=== PATIENT | female | born 1990 | race Caucasian/White ===

== ENCOUNTER 2017-01-13 21:45 | Inpatient (IN) | payer BC ==
[~2017-01-13] VITALS: Ht 154.9 cm; Wt 40.0 kg
[2017-01-13 22:26] VITALS: BP 111/55; RESP 18
[2017-01-13] MEDS ORDERED: ACETAMINOPHEN 325 MG TAB PO PRN (22:30)
[2017-01-13] MEDS: HYDROmorphONE 0.5 MG/0.5 ML SYG IV PRN (22:59)
[2017-01-13] MEDS: DEXTROSE 5%-0.9% NACL 1,000 ML IV SCH (23:08)
[2017-01-13] MEDS: ONDANSETRON 4 MG INJ IV PRN (23:11)
[2017-01-13 23:26] VITALS: Ht 154.9 cm; Wt 40.0 kg
[2017-01-14] MEDS: ONDANSETRON 4 MG INJ IV PRN ×6 (03:15→22:57)
[2017-01-14] MEDS: HYDROmorphONE 0.5 MG/0.5 ML SYG IV PRN ×6 (03:16→22:57)
[2017-01-14 03:26] VITALS: BP 110/72; RESP 18
[2017-01-14] MEDS: PANTOPRAZOLE 40 MG INJ IV SCH (05:41)
[2017-01-14 06:07] LABS: BASOPHILS % 0.5 % (0.0-2.0); EOSINOPHILS # 0.2 10^3/ul (0.0-0.5); EOSINOPHILS % 2.4 % (0.0-7.0); HEMATOCRIT 33.1 % (37.0-47.0); HEMOGLOBIN 11.1 g/dl (12.0-16.0); LYMPHOCYTES % 38.4 % (15.0-51.0); MEAN CORPUSCULAR HEMOGLOBIN 30.6 pg (29.0-33.0); MEAN CORPUSCULAR HGB CONC 33.5 g/dl (32.0-37.0); MEAN CORPUSCULAR VOLUME 91.2 fl (82.0-101.0); MEAN PLATELET VOLUME 10.3 fl (7.4-10.4); MONOCYTE # 0.6 10^3/ul (0.3-0.9); MONOCYTES % 7.1 % (0.0-11.0); NEUTROPHIL # 4.1 10^3/ul (1.6-7.5); NEUTROPHILS % 51.2 % (39.0-77.0); PLATELET COUNT 168 10^3/UL (140-415); RED BLOOD COUNT 3.63 10^6/ul (4.20-5.40); RED CELL DISTRIBUTION WIDTH 12.6 % (11.5-14.5); WHITE BLOOD COUNT 7.9 10^3/ul (4.8-10.8)
[2017-01-14 06:41] LABS: ALBUMIN 3.2 g/dl (3.3-4.9); ALBUMIN/GLOBULIN RATIO 1.1; BILIRUBIN,INDIRECT 0.5 mg/dl (0-1.1); BILIRUBIN,TOTAL 0.5 mg/dl (0.2-1.3); CALCIUM 8.5 mg/dl (8.4-10.2); CREATININE 0.6 mg/dl (0.44-1.00); POTASSIUM 3.7 mmol/L (3.5-5.1); TOTAL PROTEIN 6.1 g/dl (6.1-8.1)
[2017-01-14 08:00] VITALS: BP 125/79; RESP 18
[2017-01-14] MEDS: DEXTROSE 5%-0.9% NACL 1,000 ML IV SCH ×2 (10:06→23:59)
[2017-01-14 14:00] VITALS: BP 120/77; RESP 20
[2017-01-14 18:28] LABS: HAAIG REFLEX REFLEX FILED
[2017-01-14 18:41] LABS: AMYLASE < 30 U/L (11-123)
--- NOTE | 2017-01-14 19:00 | RADRPT ---
PROCEDURE: XR Abdomen. CLINICAL INDICATION: Kidney stones. Abdominal pain. TECHNIQUE: AP abdomen x-ray. COMPARISON: None. FINDINGS: Contrast material is seen throughout nondilated colon. Air is seen in minimally dilated upper mid ab dominal small bowel loops. Right upper quadrant clips are seen.. Air is seen to the level of the re ctum. No gross bowel obstruction. The left kidney is obscured by colonic contrast. No gross right re nal stones. Small calcifications in the midline pelvis may represent phleboliths. No bony abnormalit y is seen. IMPRESSION: Retained contrast in the colon. Minimally dilated mid abdominal small bowel loops. RPTAT: HLBE Physician Maya Date Time Electronically viewed and signed by Physician Maya on 01/14/2017 19:00 WILMAN/
--- NOTE | 2017-01-14 19:51 | QN ---
Documentation Comment [id number] LD PIZANO MD Jan 14, 2017 19:51
[2017-01-14 20:00] VITALS: BP 121/68; RESP 20
[2017-01-14] MEDS ORDERED: LORAZEPAM 2 MG INJ IV SCH (20:00)
--- NOTE | 2017-01-14 20:40 | HP ---
DATE OF ADMISSION: 01/13/2017 HISTORY OF PRESENT ILLNESS: Elisha Cadena is a 26-year-old female, who presented to [facility] with nausea, vomiting, poor p.o. intake, has history of cholecystectomy. The patient was tr ansferred here for further management. The patient is also going to be seen by Dr. Mayorga in [facility]. PAST MEDICAL HISTORY: Positive for cholecystectomy. No diabetes or hypertension. ALLERGY HISTORY: NEGATIVE. FAMILY HISTORY: Negative. SOCIAL HISTORY: Social marijuana use. MEDICATIONS AT HOME: None. REVIEW OF SYSTEMS: HEENT: Unremarkable. RESPIRATORY: Unremarkable. CARDIOVASCULAR: Unremarkable. ABDOMEN: Nausea, vomiting, abdominal pain. EXTREMITIES: Unremarkable. CENTRAL NERVOUS SYSTEM: Unremarkable. PHYSICAL EXAMINATION: GENERAL: The patient is awake and alert. VITAL SIGNS: Pulse 84, blood pressure 125/79. HEENT: Head is atraumatic, normocephalic. Pupils equal, reactive to light. NECK: Supple. There is no JVD. LUNGS: Clear. CARDIOVASCULAR: S1, S2 normal. ABDOMEN: Soft. Mild tenderness in epigastric area. EXTREMITIES: There is no cyanosis, clubbing or edema. CENTRAL NERVOUS SYSTEM: The patient is awake, alert, no focal deficit. LABORATORY DATA: Sodium 140, potassium 3.7, hematocrit 33.1. IMPRESSION: 1. The patient has abdominal pain. 2. Hyperemesis. 3. The patient has a rule out gastritis. 4. Anemia. 5. Abnormal LFT. 6. History of marijuana use socially. PLAN: To obtain GI consultation, IV fluid, PPI, antinausea medications, SCD to the legs. Other rec ommendations per Dr. Mayorga. Dictated By: LD PIZANO MD BS/NTS Conf#: [id number] DID#: [id number]
--- NOTE | 2017-01-14 20:45 | CONS ---
DATE OF ADMISSION: 01/13/2017 DATE OF CONSULTATION: TYPE OF CONSULTATION: Gastroenterology. Dear Dr. Pizano: Thank you for asking me to see Ms. Cadena in GI consultation. HISTORY OF PRESENT ILLNESS: The patient, as you know, is a 26-year-old female who has been experiencing excruciating right upper quadrant epigastric pain since Friday. On Friday, she al so had a few episodes of diarrhea, but since after that, Friday, Friday and Friday, she did not hav e any diarrhea. She has been chronically nauseated. She did vomit 1 time on Friday. No history of fever. No jaundice. No vomiting blood. No history of passing blood from the rectum. She says she had a cholecystectomy in 2010. Because of the persistent abdominal pain, she went to [facility]. From there, she was referred to this hospital because of insurance reasons. MEDICATIONS PRIOR TO THE ADMISSION: Include none. MEDICATIONS IN THE HOSPITAL: She is on: 1. Protonix. 2. Zofran. 3. Dilaudid. SOCIAL HISTORY: She does not smoke or drink. She does have 1 child. She works as a private secretary in a medical office. PAST MEDICAL HISTORY: She had a cholecystectomy. She also says she passed a kidney stone. REVIEW OF SYSTEMS: No other medical problems reported. PHYSICAL EXAMINATION: GENERAL: The patient is a 26-year-old female who at this time is alert. VITAL SIGNS: Temperature 98.6, pulse is 84, blood pressure is 120/77. CARDIOVASCULAR: Normal heart sounds. RESPIRATORY: Normal breath sounds. ABDOMEN: Showed a soft abdomen with no significant tenderness. LABORATORY WORKUP: The WBC is 7900, MCV 91.2, neutrophils 51, lymphocytes 38. BUN , creatinin e 0.6. Bilirubin 0.5, AST 63 which is high, ALT is 124 which is high, alk phos is 56, normal. Pota ssium 3.7. IMAGING STUDIES: Not available now. She had a test in [facility]. It was negative. CLINICAL IMPRESSION: The patient presenting with history of right upper quadrant pain going on for 4 days, associated with minimal diarrhea and 1 episode of vomiting. Physical exam is negative. WBC count is normal. Borderline elevation of the liver functions. It is quite possible that she may b e passing a common bile duct stone. She could still have a choledocholithiasis, although peptic ulc er disease, gastritis must be ruled out. She says she passed a kidney stone. That needs to be cons idered. PLAN: Will order MRCP and continue Protonix. We may have to do an EGD or ERCP depending upon the [employer] findings. Recommend a hepatitis panel, amylase and lipase. Dr. Pizano, once again, thank you for this consultation. Dictated By: CHAPINCITO TURK MD NC/NTS Conf#: [id number] DID#: [id number] CC: LD PIZANO MD;*EndCC*
[2017-01-14 21:26] LABS: HEPATITIS B CORE ANTIBODY NEGATIVE (NEGATIVE)
--- NOTE | 2017-01-14 22:32 | RADRPT ---
PROCEDURE: MRI abdomen / MRCP CLINICAL INDICATION: Abdominal pain. History of cholecystectomy 2010. Clinical concern for choledo cholithiasis TECHNIQUE: MRI of the abdomen is performed without contrast utilizing axial T2 and T2 fat suppress ion sequences as well as in and out of phase imaging. The MRCP is performed and the MIP series sub mitted for review. COMPARISON: Abdominal x-ray 03/17/2016 FINDINGS: Visualized lower thorax: Trace dependent right pleural effusion is present. There is no evidence of consolidation or left pleural effusion. Liver: Normal in size, contour and signal intensity with no evidence for masses or ductal dilatatio n. Gallbladder: Surgically absent compatible with the provided history. There is no evidence of collec tion or mass lesion within the gallbladder fossa Common bile duct: There is no filling defect to suggest choledocholithiasis. The caliber of the du ct is normal estimated at 3 mm. The MRCP shows no evidence for intrahepatic or extrahepatic ductal dilatation, the ductal system is smoothly aligned with no evidence for filling defect. Pancreas: There is no finding to suggest pancreatitis, mass or ductal dilatation. Spleen: Normal in size with no masses evident. Adrenal glands: Unremarkable bilaterally. Kidneys: Normal in size with no evidence for masses or hydronephrosis. No perinephric inflammation is present. Stomach, visualized small bowel and visualized large intestine: No evidence of dilatation or wall th ickening. There is no evidence of ascites. Abdominal aorta: Normal in caliber estimated at 1.1 cm. Inferior vena cava: Normal. Vertebral bodies and osseous structures: Unremarkable. Musculature and soft tissues: Normal. RPTAT:HJJR IMPRESSION: 1. The common bile duct and intrahepatic ducts are normal in caliber and there is no choledocholith iasis. 2. Changes compatible with the provided history of prior cholecystectomy. 3. Trace dependent right pleural effusion. Physician Angy Date Time Electronically viewed and signed by Physician Angy on 01/14/2017 22:32 /
[2017-01-15] VITALS (8 sets, daily range): BP systolic 105–142; BP diastolic 51–72; PULSE 60–68; RESP 10–20
[2017-01-15] MEDS: HYDROmorphONE 0.5 MG/0.5 ML SYG IV PRN ×6 (02:48→23:06)
[2017-01-15] MEDS: ONDANSETRON 4 MG INJ IV PRN ×6 (02:48→23:06)
[2017-01-15] MEDS: PANTOPRAZOLE 40 MG INJ IV SCH (05:28)
[2017-01-15 05:45] LABS: BASOPHILS % 0.7 % (0.0-2.0); EOSINOPHILS # 0.3 10^3/ul (0.0-0.5); EOSINOPHILS % 5.4 % (0.0-7.0); HEMATOCRIT 35.5 % (37.0-47.0); HEMOGLOBIN 12.2 g/dl (12.0-16.0); LYMPHOCYTES # 2.4 10^3/ul (0.8-2.9); LYMPHOCYTES % 43.2 % (15.0-51.0); MEAN CORPUSCULAR HEMOGLOBIN 31.1 pg (29.0-33.0); MEAN CORPUSCULAR HGB CONC 34.4 g/dl (32.0-37.0); MEAN CORPUSCULAR VOLUME 90.6 fl (82.0-101.0); MONOCYTE # 0.5 10^3/ul (0.3-0.9); MONOCYTES % 8.1 % (0.0-11.0); NEUTROPHIL # 2.3 10^3/ul (1.6-7.5); NEUTROPHILS % 42.2 % (39.0-77.0); PLATELET COUNT 182 10^3/UL (140-415); RED BLOOD COUNT 3.92 10^6/ul (4.20-5.40); RED CELL DISTRIBUTION WIDTH 12.6 % (11.5-14.5); WHITE BLOOD COUNT 5.6 10^3/ul (4.8-10.8)
[2017-01-15 06:14] LABS: ALBUMIN 3.4 g/dl (3.3-4.9); ALBUMIN/GLOBULIN RATIO 1.17; BILIRUBIN,INDIRECT 0.5 mg/dl (0-1.1); BILIRUBIN,TOTAL 0.5 mg/dl (0.2-1.3); CALCIUM 8.7 mg/dl (8.4-10.2); CREATININE 0.59 mg/dl (0.44-1.00); POTASSIUM 3.3 mmol/L (3.5-5.1); TOTAL PROTEIN 6.3 g/dl (6.1-8.1)
[2017-01-15] MEDS ORDERED: PROPOFOL 20 ML ONE (08:57)
[2017-01-15] MEDS ORDERED: GLYCOPYRROLATE 0.4 MG INJ ONE (08:57)
[2017-01-15] MEDS ORDERED: LIDOCAINE 2% (SDV) 5 ML INJ ONE (08:57)
--- NOTE | 2017-01-15 10:19 | OPPN ---
Date/Time of Note Date/Time of Note DATE: 01/15/17 TIME: 10:16 Proc Note GI Procedure Date 01/15/17 Indication: diagnostic Pre-procedure Diagnosis abd pain and vomitting r/o pud Post-procedure Diagnosis diffuse gastritis mild Procedure Performed: Endoscopy Surgeon see signature line Bridge Worker none Anesthesia Type: MAC Anesthesiologist: VANDANA ROGERS MD Tourniquet Time none EBL none Transfusion required none Biopsy 1: gastric and duod Grafts/Implants none Tubes/Drains none Complication(s) none Procedure Description under mac egd performed diffuse mild gastritis noted see dict CHAPINCITO TURK MD Jan 15, 2017 10:19
[2017-01-15] MEDS ORDERED: BARIUM SULF 2% 450 ML BTL (BERRY SMOOTHIE) PO ONE (10:30)
[2017-01-15] MEDS ORDERED: FENTAnyl 50 MCG/ML VIAL ONE (10:50)
[2017-01-15] MEDS ORDERED: MIDAZOLAM 1 MG/ML 2 ML INJ ONE (10:50)
[2017-01-15] MEDS ORDERED: POTASSIUM CHLORIDE 30 MEQ in DEXTROSE 5% 250 ML IVPB ONE (12:00)
[2017-01-15] MEDS ORDERED: HYDROmorphONE 1 MG/ML SYG IV STA (12:01)
--- NOTE | 2017-01-15 13:13 | GILP ---
DATE OF PROCEDURE: 01/15/2017 PROCEDURE: Esophagogastroduodenoscopy. PREOPERATIVE DIAGNOSIS: Patient presenting with history of abdominal pain with vomiting, occasional diarrhea. Rule out peptic ulcer disease. POSTOPERATIVE DIAGNOSES: 1. Mild diffuse gastritis. 2. Biopsies were done from the duodenum to rule out celiac sprue to rule out Giardia. 3. Esophagus normal. DESCRIPTION OF PROCEDURE: After informed written consent was obtained, the patient was asked to lie on the left lateral side. Intravenous anesthesia was given by anesthesiologist, Dr. Brandt. When the patient became somnolent, the Olympus video upper endoscope was introduced into the oropharynx, then into the esophagus. Esophagus showed evidence of normal mucosal pattern with no ulcers, no geeta plasm. Scope at this time was advanced into the stomach. Entire stomach showed evidence of a diffu se erythema, petechial type of red spots were noted in the fundus of the stomach. The duodenum was examined. The duodenum showed a normal mucosal pattern; however, there seems to be a decreased fold s in certain parts of the duodenum. Biopsy was obtained to rule out celiac sprue to rule out Giardi a. Endoscope at this time was withdrawn to the stomach. Biopsy of the distal antrum, the lesser cu rvature, and the fundus were obtained to rule out H. pylori infection. Scope at this time was withd rawn and no additional abnormalities detected and the procedure was terminated. PLAN: Recommend proton pump inhibitor therapy. Dictated By: CHAPINCITO LANCASTER/NTS Conf#: [id number] DID#: [id number] CC: LD PIZANO MD;*EndCC*
[2017-01-15] MEDS: DEXTROSE 5%-0.9% NACL 1,000 ML IV SCH (14:05)
[2017-01-15] MEDS ORDERED: SOD CHLORIDE 0.9% 100 ML ONE (16:37)
[2017-01-15] MEDS ORDERED: IOHEXOL 300MG/ML 150 ML BTL ONE (16:37)
--- NOTE | 2017-01-15 17:31 | RADRPT ---
PROCEDURE: CT Abdomen and pelvis with and without contrast. CLINICAL INDICATION: Abdominal pain, nausea vomiting TECHNIQUE: CT scan of the abdomen and pelvis with contrast was performed on a multidetector high-r esolution CT scan. The patient was scanned prior to and following the uncomplicated intravenous adm inistration 100 cc of Isovue 370. Oral contrast was also administered. Coronal and sagittal reforma tted images were obtained from the axial source images. Images were reviewed on a high-resolution [employer] workstation. The total exam CTDI equals 7.8 mGy and the total exam DLP equals 399.19 mGy-cm. One or more of the following dose reduction techniques were used: Automated exposure control. Adjustment of the mA and/or kV according to patient's size. Use of iterative reconstruction technique. DICOM images are available. COMPARISON: None. FINDINGS: The lung bases are clear. The liver is normal in size and contour without evidence of intrahepatic biliary dilatation. The spleen, pancreas, and adrenal glands are unremarkable. The gallbladder is s urgically absent. The kidneys are bilaterally symmetric without evidence of hydronephrosis. The abdominal aorta is in tact without evidence of aneurysm. No significant retroperitoneal adenopathy is identified. The stomach is grossly unremarkable. There is no evidence of small bowel obstruction, appendicitis or diverticulitis. No free fluid or free air is identified. Evaluation of the osseous structures r eveals no acute change. IMPRESSION: 1. Status post cholecystectomy. 2. Otherwise, no significant abnormalities are identified. There is no evidence of small bowel obst ruction, appendicitis, obstructive uropathy or diverticulitis. RPTAT:AAJJ Physician Asha Date Time Electronically viewed and signed by Physician Asha on 01/15/2017 17:30 /
--- NOTE | 2017-01-15 17:32 | PN ---
Date/Time of Note Date/Time of Note DATE: 01/15/17 TIME: 17:31 Assessment/Plan VTE Prophylaxis VTE Prophylaxis Intervention: other Lines/Catheters IV Catheter Type (from Nrs): Peripheral IV Assessment/Plan Chief Complaint/Hosp Course IMPRESSION: 1. The patient has abdominal pain. 2. Hyperemesis. 3. The patient has a rule out gastritis. 4. Anemia. 5. Abnormal LFT. 6. History of marijuana use socially. 7 hypokalemia plan per gi Problems: Subjective 24 Hr Interval Summary Gastrointestinal: no complaints Genitourinary: no complaints Exam/Review of Systems Vital Signs Vitals Vital Signs Date Time Temp Pulse Resp B/P Pulse Ox O2 Delivery O2 Flow Rate FiO2 01/15/17 14:53 98.6 65 18 105/53 96 Room Air Intake and Output 01/14/17 01/14/17 01/15/17 15:00 23:00 07:00 Intake Total 375 ml 1245 ml 850 ml Balance 375 ml 1245 ml 850 ml Exam Respiratory: clear to auscultation Cardiovascular: regular rate and rhythm Gastrointestinal: soft Musculoskeletal: nl extremities to inspection Extremities: normal pulses Results Result Diagram: 01/15/17 0521 01/15/17 0520 Results 24 hrs Laboratory Tests Test 01/15/17 05:20 01/15/17 05:21 Sodium Level 139 Potassium Level 3.3 L Chloride Level 104 Carbon Dioxide Level 29 Anion Gap 9 Blood Urea Nitrogen 3 L Creatinine 0.59 Glucose Level 202 # Calcium Level 8.7 Total Bilirubin 0.5 Direct Bilirubin 0.00 Indirect Bilirubin 0.5 Aspartate Amino Transf (AST/SGOT) 68 H Alanine Aminotransferase (ALT/SGPT) 128 H Alkaline Phosphatase 57 Total Protein 6.3 Albumin 3.4 Globulin 2.90 Albumin/Globulin Ratio 1.17 White Blood Count 5.6 # Red Blood Count 3.92 L Hemoglobin 12.2 Hematocrit 35.5 L Mean Corpuscular Volume 90.6 Mean Corpuscular Hemoglobin 31.1 Mean Corpuscular Hemoglobin Concent 34.4 Red Cell Distribution Width 12.6 Platelet Count 182 Mean Platelet Volume 10.0 Neutrophils % 42.2 Lymphocytes % 43.2 Monocytes % 8.1 Eosinophils % 5.4 Basophils % 0.7 Nucleated Red Blood Cells % 0.0 Neutrophils # 2.3 Lymphocytes # 2.4 Monocytes # 0.5 Eosinophils # 0.3 Basophils # 0.0 Nucleated Red Blood Cells # 0.0 Medications Medications Current Medications Dextrose/Sodium Chloride (D5-NS) 1,000 ml @ 75 mls/hr [id number] IV Last administered on 01/15/17 14:05; Admin Dose 75 MLS/HR; Start 01/13/17 at 22:30 Ondansetron HCl (Zofran Inj) 4 mg Q4H PRN IV NAUSEA AND/OR VOMITING Last administered on 01/15/17 14:53; Admin Dose 4 MG; Start 01/13/17 at 22:30 Pantoprazole (Protonix Iv) 40 mg DAILY@06 IV Last administered on 01/15/17 05: 28; Admin Dose 40 MG; Start 01/14/17 at 06:00 Acetaminophen (Tylenol Tab) 650 mg Q6H PRN PO PAIN AND OR ELEVATED TEMP; Start 01/13/17 at 22:30 Hydromorphone HCl (Dilaudid) 0.5 mg Q3H PRN IV PAIN Last administered on 14:05; Admin Dose 0.5 MG; Start 01/15/17 at 12:30 LD PIZANO MD Jan 15, 2017 17:32
[2017-01-16] MEDS ORDERED: LORAZEPAM 2 MG INJ IV ONE
[2017-01-16] MEDS ORDERED: SUCRALFATE 1 GM TAB PO ONE (00:30)
[2017-01-16 01:10] LABS: INR 1.04; PARTIAL THROMBOPLASTIN TIME 31.5 Sec (25.0-35.0); PROTIME 13.7 Sec (11.9-14.9); PT RATIO 1.1
[2017-01-16] MEDS: PANTOPRAZOLE IV 80 MG in SOD CHLORIDE 0.9% 100 ML IV SCH ×3 (01:52→22:03)
[2017-01-16 02:00] VITALS: BP 103/58; RESP 20
[2017-01-16] MEDS: ONDANSETRON 4 MG INJ IV PRN ×4 (03:08→20:18)
[2017-01-16] MEDS: HYDROmorphONE 0.5 MG/0.5 ML SYG IV PRN ×5 (03:08→18:57)
[2017-01-16] MEDS: DEXTROSE 5%-0.9% NACL 1,000 ML IV SCH ×3 (03:50→20:18)
[2017-01-16 06:23] LABS: BASOPHIL # 0.1 10^3/ul (0.0-0.1); BASOPHILS % 0.7 % (0.0-2.0); EOSINOPHILS # 0.5 10^3/ul (0.0-0.5); HEMATOCRIT 38.8 % (37.0-47.0); HEMOGLOBIN 13.3 g/dl (12.0-16.0); LYMPHOCYTES # 3.2 10^3/ul (0.8-2.9); MEAN CORPUSCULAR HEMOGLOBIN 30.7 pg (29.0-33.0); MEAN CORPUSCULAR HGB CONC 34.3 g/dl (32.0-37.0); MEAN CORPUSCULAR VOLUME 89.6 fl (82.0-101.0); MEAN PLATELET VOLUME 10.1 fl (7.4-10.4); MONOCYTE # 0.5 10^3/ul (0.3-0.9); MONOCYTES % 7.7 % (0.0-11.0); NEUTROPHIL # 2.8 10^3/ul (1.6-7.5); NEUTROPHILS % 39.5 % (39.0-77.0); PLATELET COUNT 208 10^3/UL (140-415); RED BLOOD COUNT 4.33 10^6/ul (4.20-5.40); RED CELL DISTRIBUTION WIDTH 12.3 % (11.5-14.5)
[2017-01-16 06:53] LABS: ALANINE AMINOTRANSFERASE 118 IU/L (13-69); ALBUMIN 3.6 g/dl (3.3-4.9); ALBUMIN/GLOBULIN RATIO 1.24; ALKALINE PHOSPHATASE 60 IU/L (42-121); ANION GAP 9 (8-16); ASPARTATE AMINO TRANSFERASE 43 IU/L (15-46); BILIRUBIN,INDIRECT 0.6 mg/dl (0-1.1); BILIRUBIN,TOTAL 0.6 mg/dl (0.2-1.3); CALCIUM 8.9 mg/dl (8.4-10.2); CARBON DIOXIDE 29 mmol/L (21-31); CHLORIDE 104 mmol/L (97-110); CREATININE 0.59 mg/dl (0.44-1.00); GLUCOSE 102 mg/dl (70-220); POTASSIUM 3.5 mmol/L (3.5-5.1); SODIUM 138 mmol/L (135-144); TOTAL PROTEIN 6.5 g/dl (6.1-8.1)
[2017-01-16 07:19] LABS: BLOOD UREA NITROGEN < 2 mg/dl (7-20)
[2017-01-16 08:00] VITALS: BP 108/70; RESP 20
--- NOTE | 2017-01-16 10:38 | PDOCDIS ---
Discharge Instructions CONDITION Patient Condition: Stable ACTIVITY: Activity Restrictions: Slowly Increase Activity FOLLOW UP/APPOINTMENTS Follow-up Plan f/u own pcp [address] beasley 1 wk LD PIZANO MD Jan 16, 2017 10:38
[2017-01-16] MEDS ORDERED: PANT40TA3 PO (10:39)
[2017-01-16] MEDS ORDERED: ONDA-43 PO (10:39)
[2017-01-16 11:42] LABS: BARBITURATES Negative (NEGATIVE); BENZODIAZEPINES Positive (NEGATIVE); CANNABINOIDS Positive (NEGATIVE); COCAINE Negative (NEGATIVE); OPIATES Positive (NEGATIVE)
[2017-01-16] MEDS ORDERED: HYDROmorphONE 0.5 MG/0.5 ML SYG IV STA (11:58)
[2017-01-16 12:35] LABS: HEMATOCRIT 36.8 % (37.0-47.0); HEMOGLOBIN 12.7 g/dl (12.0-16.0)
[2017-01-16 14:00] VITALS: BP 106/62; RESP 20
--- NOTE | 2017-01-16 15:40 | CONS ---
DATE OF ADMISSION: 01/13/2017 DATE OF CONSULTATION: HISTORY OF PRESENT ILLNESS: At this time, patient is being followed from a GI standpoint because of abdominal pain. The patient says she is having periodic abdominal pain unresponsive to routine diu retic therapy. No nausea, no vomiting, no GI bleeding, no fever. PHYSICAL EXAMINATION: VITAL SIGNS: Temperature is 97.8. The pulse is 75, respirations 20, blood pressure 106/62. ABDOMEN: Unremarkable. LABORATORY WORKUP: WBC count is 7000, hemoglobin 12.7, potassium 3.5, bilirubin 0.6. The AST is 43 , ALT is 118, amylase less than 30, lipase is 32. Repeat CAT scan of the abdomen showed unremarkabl e findings. CLINICAL IMPRESSION: Persistent Abdominal pain, etiology unknown. Liver functions are elevated but I do not believe she has got a choledocholithiasis because magnetic resonance cholangiopancreatogra phy does not show choledocholithiasis. PLAN: At this time, patient is waiting to be seen by his surgeon for evaluation. Dictated By: CHAPINCITO LANCASTER/SUSANA Conf#: [id number] DID#: [id number]
[2017-01-16] MEDS ORDERED: LIDOCAINE/MYLANTA 40 ML BTL PO ONE (17:30)
--- NOTE | 2017-01-16 17:59 | PN ---
Date/Time of Note Date/Time of Note DATE: 01/16/17 TIME: 17:58 Assessment/Plan VTE Prophylaxis VTE Prophylaxis Intervention: other Lines/Catheters IV Catheter Type (from Nrs): Peripheral IV Assessment/Plan Chief Complaint/Hosp Course IMPRESSION: 1. The patient has abdominal pain. 2. Hyperemesis.BETTER 3. The patient has a rule out gastritis. 4. Anemia. 5. Abnormal LFT.BETTER 6. History of marijuana use socially. PLAN SURG CONSULT Problems: Subjective 24 Hr Interval Summary Gastrointestinal: pain (+) Exam/Review of Systems Vital Signs Vitals Vital Signs Date Time Temp Pulse Resp B/P Pulse Ox O2 Delivery O2 Flow Rate FiO2 01/16/17 14:00 97.8 75 20 106/62 96 01/15/17 14:53 Room Air Intake and Output 01/15/17 01/15/17 01/16/17 14:59 22:59 06:59 Intake Total 525 ml 265 ml 1440 ml Balance 525 ml 265 ml 1440 ml Exam Respiratory: clear to auscultation Cardiovascular: regular rate and rhythm Gastrointestinal: soft Musculoskeletal: nl extremities to inspection Extremities: normal pulses Results Result Diagram: 01/16/17 1215 01/16/17 0534 Results 24 hrs Laboratory Tests Test 01/16/17 00:31 01/16/17 05:00 01/16/17 05:34 01/16/17 12:15 Prothrombin Time 13.7 Prothrombin Time Ratio 1.1 INR International Normalized Ratio 1.04 Activated Partial Thromboplast Time 31.5 Urine Opiates Screen Positive Urine Barbiturates Negative Urine Amphetamines Screen Negative Urine Benzodiazepines Screen Positive Urine Cocaine Screen Negative Urine Cannabinoids Positive White Blood Count 7.0 # Red Blood Count 4.33 Hemoglobin 13.3 12.7 Hematocrit 38.8 36.8 L Mean Corpuscular Volume 89.6 Mean Corpuscular Hemoglobin 30.7 Mean Corpuscular Hemoglobin Concent 34.3 Red Cell Distribution Width 12.3 Platelet Count 208 Mean Platelet Volume 10.1 Neutrophils % 39.5 Lymphocytes % 45.0 Monocytes % 7.7 Eosinophils % 7.0 Basophils % 0.7 Nucleated Red Blood Cells % 0.0 Neutrophils # 2.8 Lymphocytes # 3.2 H Monocytes # 0.5 Eosinophils # 0.5 Basophils # 0.1 Nucleated Red Blood Cells # 0.0 Sodium Level 138 Potassium Level 3.5 Chloride Level 104 Carbon Dioxide Level 29 Anion Gap 9 Blood Urea Nitrogen < 2 L Creatinine 0.59 Glucose Level 102 # Calcium Level 8.9 Total Bilirubin 0.6 Direct Bilirubin 0.00 Indirect Bilirubin 0.6 Aspartate Amino Transf (AST/SGOT) 43 Alanine Aminotransferase (ALT/SGPT) 118 H Alkaline Phosphatase 60 Total Protein 6.5 Albumin 3.6 Globulin 2.90 Albumin/Globulin Ratio 1.24 Medications Medications Current Medications Dextrose/Sodium Chloride (D5-NS) 1,000 ml @ 75 mls/hr [id number] IV Last administered on 01/16/17 05:23; Admin Dose 75 MLS/HR; Start 01/13/17 at 22:30 Ondansetron HCl (Zofran Inj) 4 mg Q4H PRN IV NAUSEA AND/OR VOMITING Last administered on 01/16/17 16:03; Admin Dose 4 MG; Start 01/13/17 at 22:30 Acetaminophen (Tylenol Tab) 650 mg Q6H PRN PO PAIN AND OR ELEVATED TEMP; Start 01/13/17 at 22:30 Hydromorphone HCl 0.5 mg 0.5 mg Q3H PRN IV PAIN Last administered on 01/16/17 16:03; Admin Dose 0.5 MG; Start 01/15/17 at 12:30 Pantoprazole/ Sodium Chloride (Protonix Iv/NS) 100 ml @ 10 mls/hr Q10H IV Last administered on 01/16/17 11:06; Admin Dose 10 MLS/HR; Start 01/16/17 at 00 :30 LD PIZANO MD Jan 16, 2017 17:58
[2017-01-16 20:00] VITALS: BP 97/47; RESP 20
[2017-01-16] MEDS ORDERED: HYDROmorphONE 1 MG/ML SYG IV STA (20:27)
--- NOTE | 2017-01-16 20:34 | CONS ---
Date/Time of Note Date/Time of Note DATE: 01/16/17 TIME: 20:34 Assessment/Plan Assessment/Plan Chief Complaint/Hosp Course 1. Abdominal pain: CT unremarkable, mri: trace pl effusion -No surgical intervention indicated -pain management -further workup per medical/gi team 2. Gastritis per EGD -ppi -lifestyle modification 3. Transaminitis: with negative hep panel: improving -trend with eventual followup outpatient 4. Toxicology + for benzo's, opiates, cannabinoids: Thank you. Patient seen and examined in collaboration with Dr. Lul Gilbert. Problems: Consultation Date/Type/Reason Admit Date/Time Jan 13, 2017 at 21:45 Date of Consultation: Jan 17, 2017 Type of Consultation: surgical Reason for Consultation abdominal pain Referring Provider: LD PIZANO MD Hx of Present Illness Elisha Cadena is a 26-year-old woman who has been experiencing mid epigastric pain since Friday. She does not recount any precipitating factors. No aggravating or alleviating factors. Associated symptoms include 1 time diarrhea, as well as nausea with vomiting 1 time on Friday. She also reports melena. Pain is described as strong, intermittent, "like someone is digging in with a fist". She reports this pain is unlike pain she has before. No history of fever, skin changes, hematemesis, chest pain, shortness of breath , palpitations, dizziness. General surgery was asked to evaluate. Constitutional: No febrile Eyes: No visual change ENT: No congestion Respiratory: No cough, No shortness of breath Cardiovascular: No chest pain, No lightheadedness, No palpitations Gastrointestinal: pain (as above) Genitourinary: No discharge Musculoskeletal: back pain Skin: No bruising, No rash Neurologic: No focal-weakness, No headache Psychological: nl mood/affect Past Surgical History Cholecystectomy Family History Significant Family History: no pertinent family hx Social History Smoking Status: Never smoker Exam/Review of Systems Vital Signs Vitals Vital Signs Date Time Temp Pulse Resp B/P Pulse Ox O2 Delivery O2 Flow Rate FiO2 01/16/17 14:00 97.8 75 20 106/62 96 01/15/17 14:53 Room Air Intake and Output 01/15/17 01/15/17 01/16/17 15:00 23:00 07:00 Intake Total 525 ml 265 ml 1440 ml Balance 525 ml 265 ml 1440 ml Exam Constitutional: alert, oriented Psych: anxiety Head: atraumatic, normocephalic Eyes: nl lids, nl sclera ENMT: mucosa pink and moist, nl nasal mucosa & septum Neck: non-tender, supple Respiratory: clear to auscultation, normal air movement Cardiovascular: regular rate and rhythm Gastrointestinal: bowel sounds, tender (midepigastric), No distended Musculoskeletal: nl extremities to inspection Extremities: normal pulses Neurological: nl mental status, nl speech, nl strength Skin: No rash or lesions Results Result Diagram: 01/16/17 1215 01/16/17 0534 Results 24 hrs Laboratory Tests Test 01/16/17 00:31 01/16/17 05:00 01/16/17 05:34 01/16/17 12:15 Prothrombin Time 13.7 Prothrombin Time Ratio 1.1 INR International Normalized Ratio 1.04 Activated Partial Thromboplast Time 31.5 Urine Opiates Screen Positive Urine Barbiturates Negative Urine Amphetamines Screen Negative Urine Benzodiazepines Screen Positive Urine Cocaine Screen Negative Urine Cannabinoids Positive White Blood Count 7.0 # Red Blood Count 4.33 Hemoglobin 13.3 12.7 Hematocrit 38.8 36.8 L Mean Corpuscular Volume 89.6 Mean Corpuscular Hemoglobin 30.7 Mean Corpuscular Hemoglobin Concent 34.3 Red Cell Distribution Width 12.3 Platelet Count 208 Mean Platelet Volume 10.1 Neutrophils % 39.5 Lymphocytes % 45.0 Monocytes % 7.7 Eosinophils % 7.0 Basophils % 0.7 Nucleated Red Blood Cells % 0.0 Neutrophils # 2.8 Lymphocytes # 3.2 H Monocytes # 0.5 Eosinophils # 0.5 Basophils # 0.1 Nucleated Red Blood Cells # 0.0 Sodium Level 138 Potassium Level 3.5 Chloride Level 104 Carbon Dioxide Level 29 Anion Gap 9 Blood Urea Nitrogen < 2 L Creatinine 0.59 Glucose Level 102 # Calcium Level 8.9 Total Bilirubin 0.6 Direct Bilirubin 0.00 Indirect Bilirubin 0.6 Aspartate Amino Transf (AST/SGOT) 43 Alanine Aminotransferase (ALT/SGPT) 118 H Alkaline Phosphatase 60 Total Protein 6.5 Albumin 3.6 Globulin 2.90 Albumin/Globulin Ratio 1.24 Medications Medications Current Medications Dextrose/Sodium Chloride (D5-NS) 1,000 ml @ 75 mls/hr [id number] IV Last administered on 01/16/17t 20:18; Admin Dose 75 MLS/HR; Start 01/13/17 at 22:30 Ondansetron HCl (Zofran Inj) 4 mg Q4H PRN IV NAUSEA AND/OR VOMITING Last administered on 01/16/17 20:18; Admin Dose 4 MG; Start 01/13/17 at 22:30 Acetaminophen (Tylenol Tab) 650 mg Q6H PRN PO PAIN AND OR ELEVATED TEMP; Start 01/13/17 at 22:30 Hydromorphone HCl 0.5 mg 0.5 mg Q3H PRN IV PAIN Last administered on 01/16/17 18:57; Admin Dose 0.5 MG; Start 01/15/17 at 12:30 Pantoprazole/ Sodium Chloride (Protonix Iv/NS) 100 ml @ 10 mls/hr Q10H IV Last administered on 01/16/17 11:06; Admin Dose 10 MLS/HR; Start 01/16/17 at 00 :30 JAVED MATTA NP Jan 16, 2017 20:34
[2017-01-17] MEDS: ONDANSETRON 4 MG INJ IV PRN ×3 (00:25→08:32)
[2017-01-17] MEDS: HYDROmorphONE 0.5 MG/0.5 ML SYG IV PRN ×3 (00:25→08:32)
[2017-01-17 02:00] VITALS: BP 102/53; RESP 19
[2017-01-17] MEDS: PANTOPRAZOLE IV 80 MG in SOD CHLORIDE 0.9% 100 ML IV SCH ×2 (06:30→08:32)
[2017-01-17 06:54] LABS: ALANINE AMINOTRANSFERASE 95 IU/L (13-69); ALBUMIN 3.4 g/dl (3.3-4.9); ALBUMIN/GLOBULIN RATIO 1.21; ALKALINE PHOSPHATASE 52 IU/L (42-121); ANION GAP 9 (8-16); ASPARTATE AMINO TRANSFERASE 31 IU/L (15-46); BILIRUBIN,INDIRECT 0.5 mg/dl (0-1.1); BILIRUBIN,TOTAL 0.5 mg/dl (0.2-1.3); CARBON DIOXIDE 29 mmol/L (21-31); CHLORIDE 106 mmol/L (97-110); CREATININE 0.59 mg/dl (0.44-1.00); GLUCOSE 93 mg/dl (70-220); POTASSIUM 3.4 mmol/L (3.5-5.1); SODIUM 141 mmol/L (135-144); TOTAL PROTEIN 6.2 g/dl (6.1-8.1)
--- NOTE | 2017-01-17 06:54 | RADRPT ---
PROCEDURE: XR Abdomen. CLINICAL INDICATION: Abdominal pain TECHNIQUE: Upright and supine abdominal x-rays were obtained. COMPARISON: DR ABDOMEN 01/14/[address] abdomen and pelvis of 01/15/2017 FINDINGS: There is appearance of an air-fluid level in a minimally dilated small bowel loop in the right upper quadrant of the abdomen. Orally administered contrast from CT is seen in the colon to the level of the sigmoid colon excluding bowel obstruction. There are no abnormal calcifications seen overlying the urinary tracts. The soft tissues are unremarkable. There is no free intraperitoneal air. The osseus structures are unremarkable. Cholecystectomy. IMPRESSION: Nonspecific bowel gas pattern as noted above. Please see above. RPTAT: HJES .Matthew Bailey MD, MD Date Time Electronically viewed and signed by .Matthew Bailey MD, on 01/17/2017 01:07 .S/
[2017-01-17 06:55] LABS: BLOOD UREA NITROGEN < 2 mg/dl (7-20)
[2017-01-17 07:57] VITALS: BP 94/48; RESP 18
[2017-01-17] MEDS ORDERED: POTASSIUM CHLORIDE 30 MEQ in DEXTROSE 5% 250 ML IVPB ONE (10:00)
--- NOTE | 2017-01-17 11:13 | PN ---
Date/Time of Note Date/Time of Note DATE: 01/17/17 TIME: 11:08 Assessment/Plan Lines/Catheters IV Catheter Type (from Nrs): Peripheral IV Assessment/Plan Chief Complaint/Hosp Course 1. Abdominal pain: CT unremarkable, mri: trace pl effusion; much improved -No surgical intervention indicated -pain management -outpatient followup with primary or gi if persistent 2. Gastritis per EGD -ppi -lifestyle modification 3. Transaminitis: with negative hep panel: improving -trend with eventual followup outpatient 4. Toxicology + for benzo's, opiates, cannabinoids: Thank you. Patient seen and examined in collaboration with Dr. Lul Gilbert. Problems: Subjective 24 Hr Interval Summary Had one time vomiting last night but now feels much improved. Tolerated diet this morning. No fevers, chills, sob, congested cough, cp, palpitations, fernandez, dizziness, n/v/d/dysuria. Exam/Review of Systems Vital Signs Vitals Vital Signs Date Time Temp Pulse Resp B/P Pulse Ox O2 Delivery O2 Flow Rate FiO2 01/17/17 07:57 97.6 67 18 94/48 97 01/15/17 14:53 Room Air Intake and Output 01/16/17 01/16/17 01/17/17 14:59 22:59 06:59 Intake Total 1940 ml 1145 ml Output Total 50 ml Balance 1940 ml 1095 ml Exam Free Text/Dictation Constitutional: alert, oriented Psych: anxiety Head: atraumatic, normocephalic Eyes: nl lids, nl sclera ENMT: mucosa pink and moist, nl nasal mucosa & septum Neck: non-tender, supple Respiratory: clear to auscultation, normal air movement Cardiovascular: regular rate and rhythm Gastrointestinal: bowel sounds, min tender (midepigastric)- improved, No distended Musculoskeletal: nl extremities to inspection Extremities: normal pulses Neurological: nl mental status, nl speech, nl strength Skin: No rash or lesions Results Result Diagram: 01/16/17 1215 01/17/17 0524 JAVED MATTA NP Jan 17, 2017 11:13
[2017-01-17] MEDS ORDERED: POTASSIUM CHLORIDE (SR) 10 MEQ TAB PO ONE (13:00)
== END 2017-01-17 13:20 | disposition home or self-care (01) | DRG 392 ==
LOC: PP2 21:45
PROVIDERS: ADMIT Internal Medicine Nephrology; ATTEND Internal Medicine Nephrology
PROC: 0DB98ZX Excision of Duodenum, Via Natural or Artificial Opening Endoscopic, Diagnostic (ICD-10-PCS; principal; 2017-01-15 07:30)
DX: K29.70 Gastritis, unspecified, without bleeding (principal); I10 Essential (primary) hypertension; F12.90 Cannabis use, unspecified, uncomplicated; D64.9 Anemia, unspecified; R79.89 Other specified abnormal findings of blood chemistry; E87.6 Hypokalemia
CPT/HCPCS: 74000; 74010; 74178; 74181; 80053; 80307; 82150; 83690; 85014; 85018; 85025; 85610; 85730; 86704; 86709; 86803; 87081; 87340; 88305; C9113; J1170; J2060; J2250; J2405; J3010; J7042; J7070; Q9967